=== PATIENT | male | born 1945 | race Caucasian/White ===

== ENCOUNTER 2017-09-04 09:55 | Outpatient (CLI) | payer OTHER | END 2017-09-04 10:07 | disposition home or self-care (01) | LOC: RAD 501 09:55 | DX: R78.0 Finding of alcohol in blood (principal) ==

== ENCOUNTER 2018-04-30 10:20 | Outpatient (CLI) | payer OTHER | END 2018-04-30 10:30 | disposition home or self-care (01) | LOC: SONOGRAMA 10:20 | DX: N18.2 Chronic kidney disease, stage 2 (mild) (principal); R80.8 Other proteinuria ==